=== PATIENT | female | born 1965 | race Caucasian/White ===

== ENCOUNTER 2018-10-27 13:37 | Emergency (ER) | payer OTHER ==
[~2018-10-27] VITALS: Ht 165.1 cm; Wt 63.0 kg
[2018-10-27 13:54] VITALS: BP 149/89
[2018-10-27] MEDS ORDERED: HYDROcodone/acetaminophen 5mg/325mg tablet PO ONE (14:25)
[2018-10-27] MEDS ORDERED: TETanus/Pertussis (Acell)/Diphther VAC/PF (Tdap-Adult) 0.5ml syringe IM ONE (14:25)
[2018-10-27] MEDS ORDERED: AMOX-422 PO (14:36)
--- NOTE | 2018-10-27 14:37 | NUR ---
pt to ct
[2018-10-27] MEDS ORDERED: TRAM50TA2 PO (15:31)
== END 2018-10-27 15:53 | disposition home or self-care (01) ==
LOC: ER 13:38
DX: S39.012A Strain of muscle, fascia and tendon of lower back, initial encounter (principal); S00.83XA Contusion of other part of head, initial encounter; Z79.899 Other long term (current) drug therapy; W11.XXXA Fall on and from ladder, initial encounter; Y93.89 Activity, other specified; Y92.89 Other specified places as the place of occurrence of the external cause; Y99.8 Other external cause status
CPT/HCPCS: 70450; 72125; 90471; 90715; 99284

== ENCOUNTER 2018-10-29 13:25 | Emergency (ER) | payer BC, OTHER ==
[~2018-10-29] VITALS: Ht 165.1 cm; Wt 62.9 kg
[~2018-10-29 13:25] MED LIST: TRAM50TA2 PO
== END 2018-10-29 16:17 | disposition home or self-care (01) ==
LOC: ER 13:25
DX: S05.12XA Contusion of eyeball and orbital tissues, left eye, initial encounter (principal); S05.11XA Contusion of eyeball and orbital tissues, right eye, initial encounter; Z79.899 Other long term (current) drug therapy; W11.XXXA Fall on and from ladder, initial encounter; Y93.89 Activity, other specified; Y92.89 Other specified places as the place of occurrence of the external cause; Y99.8 Other external cause status
CPT/HCPCS: 99281